=== PATIENT | female | born 1970 | race Hispanic/Latino ===

== ENCOUNTER 2018-11-21 14:20 | Emergency (ER) | payer BC, MEDICARE ==
[~2018-11-21] VITALS: Ht 154.9 cm; Wt 85.3 kg
[~2018-11-21 14:20] MED LIST: CYMBALTA30 MG PO; DIAMOX SEQUELS500 MG PO; GABAPENTIN100 MG PO; HYDROXYZINE HCL25 MG PO; NEURONTIN300 MG PO; SEROQUEL25 MG PO; [UNRECOGNIZED DRUG - REMARK]
--- OUTSIDE RECORDS SUMMARY | 2018-11-21 14:24 | XMS REPORT ---
Author Author [facility] Address Unknown Phone Unavailable Care Team Providers Care Nail Welter Name Role Phone AJIT REDMAN Unavailable Unavailable VALERIE, WILL Unavailable Unavailable Problems This patient has no known problems. Allergies, Adverse Reactions, Alerts This patient has no known allergies or adverse reactions. Medications This patient has no known medications. Encounters Start Date/Time End Date/Time Encounter Type Admission Type Attending [facility] Care Department Encounter ID 2018-04-01 00:00:00 2018-04-01 00:00:00 Outpatient [facility] [id number] 2018-03-17 00:00:00 2018-03-17 00:00:00 Outpatient [facility] [id number] 2018-02-11 00:00:00 2018-02-11 00:00:00 Outpatient [facility] [id number] 2018-01-21 00:00:00 2018-01-21 00:00:00 Outpatient [facility] [id number] 2017-12-23 08:12:14 2017-12-23 08:12:14 Outpatient [facility] [id number] 2017-12-23 00:00:00 2017-12-23 00:00:00 Outpatient [facility] [id number] 2017-10-16 00:00:00 2017-10-16 00:00:00 Outpatient [facility] [id number] 2017-10-02 00:00:00 2017-10-02 00:00:00 Outpatient [facility] [id number] 2017-10-01 00:00:00 2017-10-01 00:00:00 Outpatient [facility] [id number] 2017-09-25 00:00:00 2017-09-25 00:00:00 Outpatient [facility] [id number] 2017-09-17 00:00:00 2017-09-17 00:00:00 Outpatient [facility] [id number] 2017-09-09 00:00:00 2017-09-09 00:00:00 Outpatient [facility] [id number] 2017-08-26 09:23:37 2017-08-26 09:23:37 Outpatient [facility] [id number] 2017-08-26 00:00:00 2017-08-26 00:00:00 Outpatient [facility] [id number] 2017-08-12 00:00:00 2017-08-12 00:00:00 Outpatient [facility] [id number] 2017-08-04 11:43:03 2017-08-04 11:43:03 Outpatient [facility] [id number] 2017-06-25 07:24:13 2017-06-25 07:24:13 Outpatient [facility] [id number] 2017-06-25 00:00:00 2017-06-25 00:00:00 Outpatient [facility] [id number] 2017-06-25 00:00:00 2017-06-25 00:00:00 Outpatient [facility] [id number] 2017-01-07 08:25:28 2017-01-07 08:25:28 Outpatient [facility] [id number] 2017-01-07 08:04:54 2017-01-07 08:04:54 Outpatient [facility] [id number] 2017-01-01 10:37:37 2017-01-01 10:37:37 Outpatient [facility] [id number] 2017-01-01 08:00:15 2017-01-01 08:00:15 Outpatient [facility] [id number] 2016-10-08 13:28:10 2016-10-08 13:28:10 Outpatient [facility] [id number] 2016-09-08 13:50:52 2016-09-08 13:50:52 Outpatient [facility] [id number] 2016-09-04 08:43:52 2016-09-04 08:43:52 Outpatient [facility] [id number] 2016-06-11 09:36:18 2016-06-11 09:36:18 Outpatient [facility] [id number] 2016-06-11 09:11:39 2016-06-11 09:11:39 Outpatient [facility] [id number] 2016-04-30 12:27:11 2016-04-30 12:27:11 Outpatient [facility] [id number] 2016-04-25 14:05:00 2016-04-25 14:05:00 Emergency [facility] [id number] 2016-04-25 13:54:18 2016-04-25 13:54:18 Outpatient [facility] [id number] 2016-04-23 09:36:09 2016-04-23 09:36:09 Outpatient [facility] [id number] 2016-04-09 11:02:42 2016-04-09 11:02:42 Outpatient [facility] [id number] 2016-04-09 10:31:42 2016-04-09 10:31:42 Outpatient [facility] [id number] 2016-04-09 00:00:00 2016-04-09 00:00:00 Outpatient [facility] [id number] 2016-03-28 10:18:30 2016-03-28 10:18:30 Outpatient [facility] [id number] 2016-03-13 10:05:39 2016-03-13 10:05:39 Outpatient [facility] [id number] 2016-03-12 13:53:17 2016-03-12 13:53:17 Outpatient [facility] [id number] 2016-03-12 09:43:05 2016-03-12 09:43:05 Outpatient [facility] [id number] 2016-02-28 11:59:22 2016-02-28 11:59:22 Outpatient [facility] [id number] 2016-02-28 09:21:08 2016-02-28 09:21:08 Outpatient [facility] [id number] 2016-02-25 14:48:03 2016-02-25 14:48:03 Outpatient [facility] [id number] 2016-01-10 09:16:53 2016-01-10 09:16:53 Outpatient [facility] [id number] 2016-01-03 13:44:42 2016-01-03 13:44:42 Outpatient [facility] [id number] 2015-12-24 13:24:12 2015-12-24 13:24:12 Outpatient [facility] [id number] 2015-12-06 07:44:30 2015-12-06 07:44:30 Outpatient [facility] [id number] 2015-11-30 10:44:34 2015-11-30 10:44:34 Outpatient [facility] [id number] 2015-11-30 09:17:02 2015-11-30 09:17:02 Outpatient [facility] [id number] 2015-11-22 08:32:17 2015-11-22 08:32:17 Outpatient [facility] [id number] 2015-10-31 09:30:32 2015-10-31 09:30:32 Outpatient [facility] [id number] 2015-10-26 08:55:43 2015-10-26 08:55:43 Outpatient [facility] [id number] 2015-10-18 07:36:28 2015-10-18 07:36:28 Outpatient [facility] [id number] 2015-10-18 00:00:00 2015-10-18 00:00:00 Outpatient [facility] [id number] 2015-10-01 15:20:27 2015-10-01 15:20:27 Outpatient [facility] [id number] 2015-10-01 13:32:20 2015-10-01 13:32:20 Outpatient [facility] [id number] 2015-09-26 09:11:48 2015-09-26 09:11:48 Outpatient [facility] [id number] 2015-09-26 08:07:20 2015-09-26 08:07:20 Outpatient [facility] [id number] 2015-09-07 15:35:04 2015-09-07 15:35:04 Emergency [facility] [id number] 2015-08-31 07:46:17 2015-08-31 07:46:17 Outpatient [facility] [id number] 2015-08-31 00:00:00 2015-08-31 00:00:00 Outpatient [facility] [id number] 2015-08-23 10:33:20 2015-08-23 10:33:20 Outpatient [facility] [id number] Results Test Description Test Time Test Comments Text Results Atomic Results Result Comments RAD, HAND, 2 VIEWS, RIGHT 2018-05-30 22:19:00 Reason for exam:->Hand injury,arm injury 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 pt feels some broken glass on her arms.Reason for exam:->shattered glassShould this be performed at the bedside?->No FINAL REPORT RAD, HAND, 2 VIEWS, RIGHT CLINICAL INDICATION: "Hand injury,shattered glass" COMPARISON: None TECHNIQUE: AP, Oblique and Lateral views were obtained IMPRESSION:Normal alignment without fracture or appreciable soft tissue swelling.No retained, radiopaque foreign body. 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 pt feels some broken glass on her arms.Reason for exam:->Shattered glassIs the patient ?->NoShould this be performed at the bedside?->No FINAL REPORT RAD, FOREARM, 2 VIEWS, RIGHT CLINICAL INDICATION: "ARM INJURYShattered glass" COMPARISON: None TECHNIQUE: AP and lateral views were obtained. IMPRESSION:Normal alignment without fracture or appreciable soft tissue swelling.No retained, radiopaque foreign body. Signed: Andrew Gama MDReport Verified Date/Time: 05/30/2018 22:17:23 Reading Location: [facility] C013 Transitional Reading Room D STREP A SCREEN 2018-05-07 11:57:00 STREP A ANTIGEN (BEAKER) (test mjzp=217) Positive Negative RAPID TROPONIN [id number] 21:52:00* Test Item Value Reference Range Comments RAPID TROPONIN I (BEAKER) (test yfuw=8583) < ng/mL <0.05 RAD, CHEST, 2 [id number] 21:30:00Reason for exam:->coughright facial swelling x 2 days. had tooth pulled a month ago on right sideIs the patient ?->NoShould this be performed at the bedside?->NoFINAL REPORT EXAMINATION: 2 view chest CLINICAL INDICATION: Cough IMPRESSION: Compared with 09/23/2006. No definite evidence of a discrete pneumonia, pulmonary edema or pleural effusion. The heart size is normal. Mediastinal contours are sharp and stable. No evidence of an acute osseous abnormality or pneumothorax. Signed: Nehemiah Maya MDRelanort Verified Date/Time: 01/14/2018 21:30:26 Reading Location: [address] Reading Room [id number] 21:26:00* Test Item Value Reference Range Comments LIPASE (BEAKER) (test qong=009) 94 U/L 40-240 SCREEN, [id number] 21:01:00* Test Item Value Reference Range Comments TEST URINE (BEAKER) (test zwvm=998) Negative CT, MAXILLOFACIAL AREA, [id number] 20:57:00FINAL REPORT CT Maxillofacial with contrast Clinical History: Right facial swelling, tooth extraction Technique: Contiguous axial and coronal images through the maxillofacial structures with contrast. This exam was performed according to the departmental dose optimization program which includes automated exposure control, adjustment of the mA and/or kV according to the patient size, and/or use of an iterative reconstruction technique. Comparisons: None Findings: There is extraction of the right mandibular third molar. There is mild soft tissue swelling over the right cheek without evidence of an abscess. There is a cavity of the left lateral maxillary incisor. There has been extraction of all the bilateral maxillary molars. The paranasal sinuses are well aerated. The osteomeatal units are clear. There are subcentimeter lymph nodes in the visuali zed upper neck. The retro-orbital soft tissues are unremarkable. The visualized brain parenchyma does not demonstrate acute abnormality. Impression: Extraction of the right third mandibular molar with overlying soft tissue swelling, without evidence for abscess. Left lateral maxillary incisor dental cavity. Extraction of the bilateral maxillary molars. Signed: Sudeep Cortez MDReport Verified Date/ Time: 01/14/2018 20:57:55 Reading Location: [facility] C METABOLIC [id number] 20:11:00* Test Item Value Reference Range Comments SODIUM (BEAKER) (test bqgu=332) 144 meq/L 135-148 POTASSIUM (BEAKER) (test dwfr=097) 3.4 meq/L 3.6-5.5 CHLORIDE (BEAKER) (test ipck=432) 108 meq/L 98-106 CO2 (BEAKER) (test hkkd=024) 23 meq/L 24-32 BLOOD UREA NITROGEN (BEAKER) (test fmdw=604) 11 mg/dL 10-26 CREATININE (BEAKER) (test kcac=659) 0.85 mg/dL 0.50-1.20 GLUCOSE RANDOM (BEAKER) (test wnkb=278) 117 mg/dL 70-110 CALCIUM (BEAKER) (test jree=804) 8.8 mg/dL 8.5-10.5 EGFR (BEAKER) (test jvey=1245) 71 mL/min/1.73 sq m ESTIMATED GFR IS NOT ACCURATE CREATININE CLEARANCE IN PREDICTING GLOMERULAR FILTRATION RATE. ESTIMATED GFR IS NOT APPLICABLE FOR DIALYSIS PATIENTS. CBC W/PLT COUNT & AUTO [id number] 20:07:00* Test Item Value Reference Range Comments WHITE BLOOD CELL COUNT (BEAKER) (test xymy=464) 7.0 10e3/ L 4.0-10.0 RED BLOOD CELL COUNT (BEAKER) (test ylzm=478) 3.94 10e6/ L 4.00-5.00 HEMOGLOBIN (BEAKER) (test spkg=243) 11.8 g/dL 12.0-15.0 HEMATOCRIT (BEAKER) (test txit=633) 33.8 % 36.0-45.0 MEAN CORPUSCULAR VOLUME (BEAKER) (test lisc=325) 85.8 fL 82.0-99.0 MEAN CORPUSCULAR HEMOGLOBIN (BEAKER) (test wvzg=309) 29.9 pg 27.0-33.0 MEAN CORPUSCULAR HEMOGLOBIN CONC (BEAKER) (test awqg=727) 34.9 g/dL 32.0-36.0 RED CELL DISTRIBUTION WIDTH (BEAKER) (test lyzi=600) 12.9 % 10.3-14.2 PLATELET COUNT (BEAKER) (test wpoi=661) 233 10e3/ L 150-430 MEAN PLATELET VOLUME (BEAKER) (test jnnj=138) 8.2 fL 6.5-10.5 NEUTROPHILS RELATIVE PERCENT (BEAKER) (test lfyi=916) 74 % LYMPHOCYTES RELATIVE PERCENT (BEAKER) (test vyes=362) 17 % MONOCYTES RELATIVE PERCENT (BEAKER) (test rafk=141) 7 % EOSINOPHILS RELATIVE PERCENT (BEAKER) (test jhsu=520) 1 % BASOPHILS RELATIVE PERCENT (BEAKER) (test hsts=567) 0 % NEUTROPHILS ABSOLUTE COUNT (BEAKER) (test wnpe=666) 5.14 10e3/ L 1.80-8.00 LYMPHOCYTES ABSOLUTE COUNT (BEAKER) (test spqv=673) 1.20 10e3/ L 1.48-4.50 MONOCYTES ABSOLUTE COUNT (BEAKER) (test evku=339) 0.52 10e3/ L 0.00-1.30 EOSINOPHILS ABSOLUTE COUNT (BEAKER) (test efdf=699) 0.10 10e3/ L 0.00-0.50 BASOPHILS ABSOLUTE COUNT (BEAKER) (test kuym=512) 0.03 10e3/ L 0.00-0.20
--- OUTSIDE RECORDS SUMMARY | 2018-11-21 14:24 | XMS REPORT | Clinical Summary ---
Author Author [facility] Address Unknown Phone Unavailable Care Team Providers Care Night Warehouse Manager Name Role Phone Pcp, No PCP Unavailable Allergies No Known Allergies Medications End Date Status Medication Sig Dispensed Refills Start Date Active QUEtiapine (SEROQUEL) 200 Take 200 mg 0 MG tablet by mouth nightly. Active hydroxychloroquine Take by mouth 0 (PLAQUENIL) 200 mg tablet 2 (two) times daily. Active ondansetron (ZOFRAN-ODT) Take 1 tablet 20 tablet 0 4 MG disintegrating (4 mg total) 8 tablet by mouth every 4 (four) hours as needed for Nausea. Active gabapentin (NEURONTIN) Take 800 mg 0 800 MG tablet by mouth 3 (three) times daily. Active tiZANidine (ZANAFLEX) 4 Take 4 mg by 0 MG tablet mouth 2 (two) times daily. Active ibuprofen (ADVIL,MOTRIN) Take 1 tablet 40 tablet 0 800 MG tablet (800 mg 8 total) by mouth every 6 (six) hours as needed for Pain. 01/21/2018 clindamycin (CLEOCIN) 300 Take 1 21 capsule 0 MG capsule capsule (300 8 mg total) by mouth 3 (three) times daily for 7 days. 01/24/2018 acetaminophen-codeine Take 1-2 30 tablet 0 (TYLENOL #3) 300-30 mg tablets by 8 per tablet mouth every 6 (six) hours as needed for up to 10 days. Max Daily Amount: 8 tablets 05/30/2018 Discontinued ibuprofen (ADVIL,MOTRIN) Take 800 mg 0 800 MG tablet by mouth every 6 (six) hours as needed for Pain. 05/17/2018 acetaminophen-codeine Take 1-2 30 tablet 0 (TYLENOL #3) 300-30 mg tablets by 8 per tablet mouth every 6 (six) hours as needed for up to 10 days. Max Daily Amount: 8 tablets 06/09/[address] 1 drop 10 mL 0 (CILOXAN) 0.3 % into the 8 ophthalmic solution right eye every 2 (two) hours for 10 days. 06/09/2018 bacitracin 500 unit/gram Apply 120 g 0 ointment topically 2 8 (two) times daily for 10 days. Active Problems Not on file Encounters Care Team Description Date Type Specialty Franklyn Mc MD Arm injury, right, initial encounter (Primary Dx); Skin abrasion; Acute conjunctivitis of right eye, unspecified acute conjunctivitis type 05/30/2018 Emergency Emergency Medicine Ze David MD Acute streptococcal pharyngitis (Primary Dx); Throat pain in adult; Myalgia; Low grade fever 05/07/2018 Emergency Emergency Medicine Janet, Cris III, DO Facial swelling (Primary Dx); Acute facial pain; Facial mass; Epigastric pain 01/14/2018 Emergency Emergency Medicine 01/14/2018 Orders Only General Internal Medicine after 11/20/2017 Social History Date Tobacco Use Types Packs/Day Years Used Never Smoker Smokeless Tobacco: Never Used Alcohol Use Drinks/Week oz/Week Comments No Sex Assigned at Date Recorded Not on file Industry Job Start Date Occupation Not on file Not on file Not on file Travel End Travel History Travel Start No recent travel history available. Last Filed Vital Signs Time Taken Vital Sign Reading 05/30/2018 11:10 PM CDT Blood Pressure 195/102 05/30/2018 11:10 PM CDT Pulse 76 05/30/2018 9:34 PM CDT Temperature 37 C (98.6 F) 05/30/2018 11:10 PM CDT Respiratory Rate 20 05/30/2018 9:34 PM CDT Oxygen Saturation 98% - Inhaled Oxygen - Concentration 05/30/2018 9:34 PM CDT Weight 66.9 kg (147 lb 9 oz) 05/30/2018 9:34 PM CDT Height 154.9 cm (5' 1") 05/30/2018 9:34 PM CDT Body Mass Index 27.88 Plan of Treatment Not on file Procedures Comments Procedure Name Priority Date/Time Associated Diagnosis XR HAND RIGHT 2 VIEW STAT 05/30/2018 10:14 PM CDT XR FOREARM RIGHT 2 VIEW STAT 05/30/2018 10:14 PM CDT RAPID STREP A SCREEN STAT 05/07/2018 11:45 AM CDT ED ECG INTERPRETATION Routine 01/15/2018 7:51 AM MACHINE ZIPPER TRIMMER ECG 12-LEAD Routine 01/14/2018 9:43 PM MACHINE ZIPPER TRIMMER Procedure Note - Interface, External Ris In - 01/14/2018 9:48 PM MACHINE ZIPPER TRIMMER Ventricula r Rate 75 BPM Atrial Rate 75 BPM P-R Interval 164 ms QRS Duration 90 ms Q-T Interval 422 ms QTC Calculatio n(Bazett) 471 ms P Wildwood 64 degrees R Wildwood -6 degrees T Wildwood 27 degrees Normal sinus rhythm Normal ECG No previous ECGs available ECG 12-LEAD Routine 01/14/2018 9:43 PM MACHINE ZIPPER TRIMMER RAPID TROPONIN I STAT 01/14/2018 9:07 PM MACHINE ZIPPER TRIMMER LIPASE STAT 01/14/2018 9:07 PM MACHINE ZIPPER TRIMMER XR CHEST 2 VIEWS STAT 01/14/2018 8:[address] MAXILLOFACIAL WITH IV STAT 01/14/2018 CONTRAST 8:42 PM MACHINE ZIPPER TRIMMER SCREEN, URINE STAT 01/14/2018 7:56 PM MACHINE ZIPPER TRIMMER CBC W/PLT COUNT & AUTO STAT 01/14/2018 DIFFERENTIAL 7:45 PM MACHINE ZIPPER TRIMMER BASIC METABOLIC PANEL (7) STAT 01/14/2018 7:45 PM MACHINE ZIPPER TRIMMER CBC W/PLT COUNT & AUTO STAT 01/14/2018 DIFFERENTIAL 7:45 PM MACHINE ZIPPER TRIMMER after 11/20/2017 Results * XR forearm 2 views right (05/30/2018 10:14 PM CDT) Narrative Performed At [facility] RAD, FOREARM, 2 VIEWS, RIGHT CLINICAL INDICATION: "ARM INJURY Shattered glass" COMPARISON: None TECHNIQUE: AP and lateral views were obtained. IMPRESSION: Normal alignment without fracture or appreciable soft tissue swelling. No retained, radiopaque foreign body. Signed: Andrew Gama MD Report Verified Date/Time:05/30/2018 22:17:23 Reading Location: [address] Transitional Reading Room Procedure Note Interface, External Ris In - 05/30/2018 10:19 PM CDT FINAL REPORT RAD, FOREARM, 2 VIEWS, RIGHT CLINICAL INDICATION: "ARM INJURY Shattered glass" COMPARISON: None TECHNIQUE: AP and lateral views were obtained. IMPRESSION: Normal alignment without fracture or appreciable soft tissue swelling. No retained, radiopaque foreign body. Signed: Andrew Gama MD Report Verified Date/Time: 05/30/2018 22:17:23 Reading Location: [address] Transitional Reading Room Performing Organization Address City/State/Zipcode Phone Number GE RIS * XR hand 2 views right (05/30/2018 10:14 PM CDT) Narrative Performed At FINAL REPORT [facility] RAD, HAND, 2 VIEWS, RIGHT CLINICAL INDICATION: "Hand injury, shattered glass" COMPARISON: None TECHNIQUE: AP, Oblique and Lateral views were obtained IMPRESSION: Normal alignment without fracture or appreciable soft tissue swelling. No retained, radiopaque foreign body. Signed: Andrew Gama MD Report Verified Date/Time:05/30/2018 22:19:48 Reading Location: [address] Transitional Reading Room Procedure Note Interface, External Ris In - 05/30/2018 10:22 PM CDT FINAL REPORT RAD, HAND, 2 VIEWS, RIGHT CLINICAL INDICATION: "Hand injury, shattered glass" COMPARISON: None TECHNIQUE: AP, Oblique and Lateral views were obtained IMPRESSION: Normal alignment without fracture or appreciable soft tissue swelling. No retained, radiopaque foreign body. Signed: Andrew Gama MD Report Verified Date/Time: 05/30/2018 22:19:48 Reading Location: [facility] B1 C013T Transitional Reading Room Performing Organization Address City/[facility] Phone Number [facility] * Rapid Strep A screen (05/07/2018 11:45 AM CDT) Strep A Ag Positive (A) Negative [facility], [facility] Specimen Throat - Throat Performing Organization Address [facility] [place]/[facility] Phone Number [facility] [address] [place] [address] [facility], [facility] * ED ECG Interpretation (01/15/2018 7:51 AM MACHINE ZIPPER TRIMMER) Narrative Performed At Cris Gonzales DO 01/15/20187:51 AM ECG/EKG Interpretation Date/Time: 01/14/2018 9:43 PM Performed by: CRIS GONZALES Authorized by: CRIS GONZALES The ECG was interpreted by ED physician. This ECG was not compared with previous ECG(s).The ECG is interpreted as sinus rhythm. Rate is normal rate. ST segments normal. T waves normal. Clinical Impression: normal ECGECG reviewed and does not meet STEMI criteria. * ECG 12 lead (01/14/2018 9:43 PM MACHINE ZIPPER TRIMMER) Narrative Performed At Ventricular Rate 75 BPM GE MUSE Atrial Rate 75 BPM P-R Interval 164 ms QRS Duration 90 ms Q-T Interval 422 ms QTC Calculation(Bazett) 471 ms P Wildwood 64 degrees R Wildwood -6 degrees T Wildwood 27 degrees Normal sinus rhythm Normal ECG No previous ECGs available Confirmed by MD VAIBHAV, IHAB ([id number]) on 01/15/2018 9:48:23 AM Procedure Note Interface, External Ris In - 01/15/2018 9:48 AM MACHINE ZIPPER TRIMMER Ventricular Rate 75 BPM Atrial Rate 75 BPM P-R Interval 164 ms QRS Duration 90 ms Q-T Interval 422 ms QTC Calculation(Bazett) 471 ms P Wildwood 64 degrees R Wildwood -6 degrees T Wildwood 27 degrees Normal sinus rhythm Normal ECG No previous ECGs available Confirmed by MD VAIBHAV, IHAB ([id number]) on 01/15/2018 9:48:23 AM Performing Organization Address [facility] [place]/[facility] Phone Number [facility] M[facility] * Rapid Troponin I (01/14/2018 9:07 PM MACHINE ZIPPER TRIMMER) Rapid Troponin I <0.05 <0.05 ng/mL [facility], [facility] Specimen Blood - Arm, Right Performing Organization Address City/[facility]/[employer] Phone Number [address] [phone] [facility], [facility] * Lipase (01/14/2018 9:07 PM MACHINE ZIPPER TRIMMER) Lipase 94 40 - 240 U/L [facility] Specimen Blood - Arm, Right Performing Organization Address [facility] [place]/[facility] Phone Number [address] [phone] [facility], [facility] * XR chest 2 views (01/14/2018 8:42 PM MACHINE ZIPPER TRIMMER) Narrative Performed At [facility] EXAMINATION: 2 view chest CLINICAL INDICATION: Cough IMPRESSION: Compared with 09/23/2006. No definite evidence of a discrete pneumonia, pulmonary edema or pleural effusion. The heart size is normal. Mediastinal contours are sharp and stable. No evidence of an acute osseous abnormality or pneumothorax. Signed: Manny Maya MD Report Verified Date/Time:01/14/2018 21:30:26 Reading Location: [address] Reading Room Procedure Note Interface, External Ris In - 01/14/2018 9:32 PM MACHINE ZIPPER TRIMMER FINAL REPORT EXAMINATION: 2 view chest CLINICAL INDICATION: Cough IMPRESSION: Compared with 09/23/2006. No definite evidence of a discrete pneumonia, pulmonary edema or pleural effusion. The heart size is normal. Mediastinal contours are sharp and stable. No evidence of an acute osseous abnormality or pneumothorax. Signed: Manny Maya MD Report Verified Date/Time: 01/14/2018 21:30:26 Reading Location: [address] Reading Room Performing Organization Address City/State/Zipcode Phone Number RIS * CT maxillofacial with IV contrast (01/14/2018 8:42 PM MACHINE ZIPPER TRIMMER) Narrative Performed At [facility]PORT [facility] CT Maxillofacial with contrast Clinical History: Right [...] There are subcentimeter lymph nodes in the visualized upper neck. The retro-orbital soft tissues are unremarkable. The visualized brain parenchyma does not demonstrate acute abnormality. Impression: Extraction of the right third mandibular molar with overlying soft tissue swelling, without evidence for abscess. Left lateral maxillary incisor dental cavity. Extraction of the bilateral maxillary molars. Signed: Sudeep Cortez MD Report Verified Date/Time:01/14/2018 20:57:55 Reading Location: [facility] Radiology Reading Room Procedure Note Interface, External Ris In - 01/14/2018 9:00 PM MACHINE ZIPPER TRIMMER FINAL REPORT CT Maxillofacial with contrast Clinical History: [...] There are subcentimeter lymph nodes in the visualized upper neck. The retro-orbital soft tissues are unremarkable. The visualized brain parenchyma does not demonstrate acute abnormality. Impression: Extraction of the right third mandibular molar with overlying soft tissue swelling, without evidence for abscess. Left lateral maxillary incisor dental cavity. Extraction of the bilateral maxillary molars. Signed: Sudeep Cortez MD Report Verified Date/Time: 01/14/2018 20:57:55 Reading Location: [facility] Radiology Reading Room Performing Organization Address City/State/Zipcode Phone Number RIS * screen, urine (01/14/2018 7:56 PM MACHINE ZIPPER TRIMMER) Preg Test, Ur Negative [facility] Specimen Urine - Urine, Clean Catch Performing Organization Address City/[facility] Phone Number [facility] [address] [place] [address] [facility] * CBC with platelet count + automated diff (01/14/2018 7:45 PM MACHINE ZIPPER TRIMMER) WBC 7.0 4.0 - 10.0 10e3/L [facility] RBC 3.94 (L) 4.00 - 5.00 10e6/L [facility] Hemoglobin 11.8 (L) 12.0 - 15.0 g/dL [facility] Hematocrit 33.8 (L) 36.0 - 45.0 % [facility] MCV 85.8 82.0 - 99.0 fL [facility] MCH 29.9 27.0 - 33.0 pg [facility] MCHC 34.9 32.0 - 36.0 g/dL [facility], [facility] RDW 12.9 10.3 - 14.2 % [facility] Platelets 233 150 - 430 10e3/L [facility] MPV 8.2 6.5 - 10.5 fL [facility] % Neutros 74 % [facility] % Lymphs 17 % [facility] % Monos 7 % [facility] % Eos 1 % [facility] % Baso 0 % [facility] # Neutros 5.14 1.80 - 8.00 10e3/L [facility] # Lymphs 1.20 (L) 1.48 - 4.50 10e3/L [facility] # Monos 0.52 0.00 - 1.30 10e3/L [facility] # Eos 0.10 0.00 - 0.50 10e3/L [facility] # Baso 0.03 0.00 - 0.20 10e3/L [facility] Specimen Blood - Arm, Right Performing Organization Address City/State/Zipcode Phone Number [facility] [address] [place] [address] [facility], [facility] * Basic Metabolic Panel (01/14/2018 7:45 PM MACHINE ZIPPER TRIMMER) Sodium 144 135 - 148 meq/L [facility], [facility] Potassium 3.4 (L) 3.6 - 5.5 meq/L [facility] Chloride 108 (H) 98 - 106 meq/L [facility] CO2 23 (L) 24 - 32 meq/L [facility] BUN 11 10 - 26 mg/dL [facility] Creatinine 0.85 0.50 - 1.20 mg/dL [facility], [facility] Glucose 117 (H) 70 - 110 mg/dL [facility] Calcium 8.8 8.5 - 10.5 mg/dL [facility], [facility] EGFR 71Comment: ESTIMATED GFR IS mL/min/1.73 sq m [facility] NOT ACCURATE CREATININE [facility] CLEARANCE IN [facility] GLOMERULAR FILTRATION RATE. EMERGENCY CENTER, ESTIMATED GFR IS NOT [facility] APPLICABLE FOR DIALYSIS PATIENTS. Specimen Blood - Arm, Right Performing Organization Address City/State/Zipcode Phone Number [facility] [address] [place] [address] [facility], [facility] after 11/20/2017 Insurance Payer Benefit Subscriber ID Type Phone Address Plan / Group [facility] x[facility]xx MEDIC[facility] ADV
[2018-11-21] MEDS ORDERED: ACETAMINOPHEN 325 MG TAB ONE (15:01)
[2018-11-21 15:16] LABS: BASOPHILS % 0.1 % (0.0-1.0); EOSINOPHILS # (AUTO) 0.2 (0.0-0.4); HEMATOCRIT 34.3 % (34.2-44.1); HEMOGLOBIN 11.9 g/dL (12.0-16.0); LYMPHOCYTES # (AUTO) 1.3 (1.0-3.2); LYMPHOCYTES % 11.7 % (18.0-39.1); MEAN CORPUSCULAR HEMOGLOBIN 30.2 pg (28-32); MEAN CORPUSCULAR HGB CONC 34.7 g/dL (31-35); MEAN CORPUSCULAR VOLUME 87.1 fL (81-99); MONOCYTES % 9.2 % (4.4-11.3); NEUTROPHILS # (AUTO) 8.3 (2.1-6.9); NEUTROPHILS % 76.6 % (38.7-80.0); PLATELET COUNT 279 x10e3/uL (140-360); RED BLOOD COUNT 3.94 x10e6/uL (3.6-5.1); RED CELL DISTRIBUTION WIDTH 12.2 % (11.7-14.4)
[2018-11-21 15:25] LABS: INR 0.99
[2018-11-21 15:26] LABS: PARTIAL THROMBOPLASTIN TIME 35.7 seconds (23.8-35.5)
[2018-11-21] MEDS ORDERED: ACETAMINOPHEN 325 MG TAB PO ONE (15:30)
[2018-11-21 15:36] LABS: ALBUMIN 3.6 g/dL (3.5-5.0); ANION GAP 12.4 mmol/L (8-16); CALCIUM 8.5 mg/dL (8.4-10.2); CREATININE, SERUM 1.17 mg/dL (0.57-1.11); POTASSIUM 3.4 mmol/L (3.5-5.1)
[2018-11-21 15:40] LABS: CREATINE KINASE MB 0.4 ng/mL (0-5.0)
[2018-11-21 15:47] LABS: CLARITY,URINE HAZY (CLEAR); COLOR,URINE YELLOW (YELLOW)
[2018-11-21 15:48] LABS: KETONES,URINE NEGATIVE (NEGATIVE); LEUKOCYTE ESTERASE ,URINE TRACE (NEGATIVE); NITRITE,URINE POSITIVE (NEGATIVE); PROTEIN,URINE DIPSTICK NEGATIVE (NEGATIVE); URINE UROBILINOGEN 1 mg/dL (0.2 - 1)
[2018-11-21 15:49] LABS: BILIRUBIN,URINE NEGATIVE (NEGATIVE)
[2018-11-21 15:58] LABS: BACTERIA,URINE MANY /HPF; RBC,URINE 0-5 /HPF (0-5)
[2018-11-21 15:59] LABS: EPITHELIAL CELLS,URINE MODERATE /LPF
--- NOTE | 2018-11-21 16:05 | NUR ---
MIGEL FROM LAB CALLED TO REPORT PT IS FLU A&B+. INFORMED DR. FLORES OF THIS.
[2018-11-21] MEDS ORDERED: SODIUM CHLORIDE 0.9% 1000ML 1,000 ML IV ONE (16:15)
[2018-11-21] MEDS ORDERED: SODIUM CHLORIDE 0.9% 100 ML 100 ML ONE (16:38)
[2018-11-21] MEDS ORDERED: IOPAMIDOL 370 MG/ML 200 ML INFUS..BTL INJ ONE (16:38)
--- NOTE | 2018-11-21 17:31 | Diagnostic Imaging Report ---
EXAMINATION: CHEST 2 VIEWS INDICATION: Lupus, positive for influenza, right anterior chest pain ^SEPSIS ^[id number] ^1635 ^Y COMPARISON: None FINDINGS: PA and lateral views TUBES and LINES: None. LUNGS: Lungs are well inflated. Right upper lobe airspace opacity suggestive of infiltrate. No findings in the left lung. PLEURA: No pleural effusion or pneumothorax. HEART AND MEDIASTINUM: The cardiomediastinal silhouette is unremarkable.. BONES AND SOFT TISSUES: No focal osseous lesions. Soft tissues are unremarkable. UPPER ABDOMEN: No free air under the diaphragm. Cholecystectomy clips are present. IMPRESSION: Right upper lobe airspace opacity suggestive of pneumonia. Signed by: Dr. Elissa Rai MD on 11/21/2018 5:28 PM
--- NOTE | 2018-11-21 17:38 | Diagnostic Imaging Report ---
CT chest pulmonary embolism protocol CPT code: 99869 INDICATION: Flulike symptoms, history of lupus, elevated d-dimer ^PE PROTOCOL ^[id number] ^1635 TECHNIQUE: Thin collimation axial images obtained through the level of the pulmonary arteries with additional imaging through the chest following the uneventful administration of 100 cc of low osmolar, nonionic intravenous contrast. Images reconstructed into coronal and sagittal MIPs for complete evaluation of the tortuous and overlapping pulmonary vascular structures and to reduce patient radiation dose. RADIATION DOSE: Total DLP: 442.6 mGy*cm Estimated effective dose: (DLP x 0.015 x size factor) mSv CTDIvol has been reviewed. It is below the limits set by the Radiation Protocol Committee (RPC). COMPARISON: Chest x-ray 1635 hours. FINDINGS: Pulmonary artery: No filling defects are appreciated within the main, left, right, lobar or visualized segmental pulmonary arteries to suggest embolism. Main pulmonary artery measures 2.5 cm in diameter. Aorta: The thoracic aorta is not aneurysmal. No evidence for dissection. Lymph nodes: No enlarged axillary, supraclavicular lymph nodes. Lymphoid tissue in the subcarinal space and at the hilum is prominent but no lymph nodes are defined for measurement.. Thyroid: Normal in size without mass in the visualized parenchyma.. Mediastinum: The heart is enlarged. No pericardial effusion. The esophagus is normal. Lungs: Right Lung: Multifocal groundglass opacities throughout the upper lobe. There is associated bronchial wall thickening. Small focus of subsegmental atelectasis in the posterior basal segment of the lower lobe and the medial segment of the middle lobe. There is bronchial wall thickening in the lower lobe. Left Lung: Small focus of subsegmental atelectasis in the posterior costophrenic angle. No infiltrates.. Pleura: No pleural effusion or pleural based mass. Airways: Clear. Abdomen: The gallbladder is absent. Visualized portions of the liver, spleen, pancreas, adrenal glands, and kidneys are unremarkable. Bones: No focal osseous lesions. There is a catheter in the lower thoracic spine terminating at T11/12. IMPRESSION: 1. No evidence of pulmonary embolus or aortic dissection. 2. Inflammatory opacities in the right upper lobe and bronchial wall thickening is suggestive of bronchopneumonia. Bronchial wall thickening in the right lower lobe is suggestive of acute bronchitis. No infiltrates have developed. Subsegmental atelectasis in each lung as described above. 3. Cardiomegaly. 4. Cholecystectomy. Signed by: Dr. Elissa Rai MD on 11/21/2018 5:35 PM
[2018-11-21] MEDS ORDERED: CEFTRIAXONE SOD 1 GM/NS 50 ML 50 ML IV ONE (18:00)
--- NOTE | 2018-11-21 19:15 | NUR ---
REPORT GIVEN TO SALVADOR BHATIA
--- NOTE | 2018-11-21 19:56 | NUR ---
PT RESTING COMFORTABLY AT THIS TIME, RESPORTS PAIN ON DEEP INHALATION. PLAN OF CARE DISCUSSED WITH PT, VERBALIZED UNDERSTANDING. CALL LIGHT WITHIN REACH, ENCOURAGED TO CALL FOR ASSISTANCE.
== END 2018-11-21 20:48 | disposition home or self-care (01) ==
LOC: ER 14:20
DX: R50.9 Fever, unspecified (principal); R05 Cough; J11.1 Influenza due to unidentified influenza virus with other respiratory manifestations; N28.9 Disorder of kidney and ureter, unspecified; M06.9 Rheumatoid arthritis, unspecified; M79.7 Fibromyalgia; F41.9 Anxiety disorder, unspecified; F32.9 Major depressive disorder, single episode, unspecified; Z86.73 Personal history of transient ischemic attack (TIA), and cerebral infarction without residual deficits
CPT/HCPCS: 36415; 71046; 71260; 80053; 81001; 82550; 82553; 83605; 83735; 84484; 85025; 85379; 85610; 85730; 87040; 87086; 87186; 87400; 99284; J0696; J7030; Q9967